=== PATIENT | female | born 1965 | race Caucasian/White ===

== ENCOUNTER 2018-02-28 08:12 | Emergency (ER) | payer OTHER ==
[~2018-02-28] VITALS: Ht 167.6 cm; Wt 72.6 kg
[2018-02-28 08:17] VITALS: BP 180/100
--- NOTE | 2018-02-28 08:33 | ED NECK/BACK PAIN COMPLAINT ---
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 PAIN MORE THAN 10 APPT TOMORROW WITH SURGEON, BUT "I COULDN'T WAIT THAT LONG. I NEED SOEMTHING NOW." DECLINES MOTRIN/ TYLENOL IN TRIAGE. Triage Nurses Notes Reviewed? yes HPI: Patient presents complaining of severe 10 out of 10 lower back pain. Patient hasn't 2 known herniated disks. Patient has an appointment to see a surgeon tomorrow at 10 AM. Patient has been taking Percocet and Valium without relief. Patient states that she just needs something to help with the pain for now. The pain increased with movement. There is no radiation. There is no weakness or numbness. There is no incontinence of bowel or bladder. The pain is aching and throbbing in nature. Past History Travel History Traveled to [place] past 21 day No Medical History Any Pertinent Medical History? see below for history Neurological: NONE EENT: NONE Cardiovascular: NONE Respiratory: NONE Gastrointestinal: NONE Hepatic: NONE Renal: NONE Musculoskeletal: disk herniation Psychiatric: NONE Endocrine: NONE Blood Disorders: NONE Cancer(s): NONE Surgical History Surgical History: non-contributory Psychosocial History What is your primary language Danish Tobacco Use: Current Daily Use Daily Tobacco Use Amount/Type: => 5 Cigarettes daily ETOH Use: denies use Illicit Drug Use: denies illicit drug use Family History Hx Contributory? No Review of Systems Review of Systems Constitutional: Reports: no symptoms. Eyes: Reports: no symptoms. Ears, Nose, Throat, Mouth: Reports: no symptoms. Respiratory: Reports: no symptoms. Cardiovascular: Reports: no symptoms. Gastrointestinal/Abdominal: Reports: no symptoms. Musculoskeletal: Reports: see HPI, back pain. Skin: Reports: no symptoms. Neurological/Psychological: Reports: no symptoms. All Other Systems: Reviewed and Negative Physical Exam Physical Exam General Appearance: well developed/nourished, mild distress Head: atraumatic, normal appearance Eyes: Bilateral: PERRL, EOMI. Ears, Nose, Throat, Mouth: hearing grossly normal, moist mucous membrane Neck: normal inspection, supple, full range of motion, no midline tenderness Respiratory: normal breath sounds, chest non-tender, no respiratory distress, lungs clear Cardiovascular: regular rate/rhythm, normal peripheral pulses Gastrointestinal: normal bowel sounds, soft, non-tender Back: normal inspection, muscle spasm Extremities: normal range of motion Neurologic/Psych: awake, alert, oriented x 3, normal mood/affect Skin: intact, normal color, warm/dry Core Measures CVA/TIA Diagnosis: No Progress Differential Diagnosis: herniated disc Plan of Care: Current Medications Sig/Sanchez Start time Last Medication Dose Stop Time Status Admin Ketorolac 60 MG ONCE ONE 02/28 845 UNVr Tromethamine 02/28 846 (Toradol) Morphine Sulfate 6 MG ONCE ONE 02/28 845 UNVr (Morphine) 02/28 846 Departure Departure Disposition: HOME OR SELF CARE Condition: Stable Clinical Impression Primary Impression: Back pain Referrals: Rena FELIX,Kate Colvin (PCP/Family) Additional Instructions: Follow-up with her surgeon tomorrow. Return for any concerns. Departure Forms: Customer Survey General Discharge Information
== END 2018-02-28 10:00 ==
LOC: ERH 08:12
DX: M54.5 Low back pain (principal)
CPT/HCPCS: 96372; 96374; J1885